=== PATIENT | male | born 1970 | race Two or more races ===

== ENCOUNTER 2018-11-11 05:04 | Inpatient (IN) | payer OTHER ==
[~2018-11-11] VITALS: Ht 175.3 cm; Wt 145.1 kg
--- NOTE | 2018-11-11 05:50 | NUR ---
RN ADMITTING NOTES RECEIVED PT FOR DAY SURGERY, PT AWAKE ALERT ORIENTEDX4, BREATHING EVEN AND UNLABORED ON ROOM AIR. IV ACCESS ON THE R AC 20G SL. CONSENTS SIGNED, BELONGINGS LIST COMPLETED. PT AWAITING SX NURSE. WILL ENDORSE TO DAY NURSE FOR JESSI
[2018-11-11] MEDS ORDERED: AMLO5TAB9 PO (05:53)
[2018-11-11] MEDS ORDERED: ANESTHESIA TRAY IN PYXIS 1 EA TRAY MC ONE (05:54)
[2018-11-11] MEDS ORDERED: BACITRACIN 50000 UNITS/VIAL ONE (05:54)
[2018-11-11] MEDS ORDERED: BUPIVACAINE 0.5 % PF 150 MG/30 ML VIAL ONE (06:27)
[2018-11-11 06:31] VITALS: BP 158/75
[2018-11-11] MEDS ORDERED: HYDROMORPHONE INJ 2 MG/ML DISP.SYRIN ONE (07:19)
[2018-11-11] MEDS ORDERED: TRANEXAMIC ACID 3,000 MG in SODIUM CHLORIDE IRRIG SOLUTION 70 ML IR ONE (07:30)
--- NOTE | 2018-11-11 07:30 | NUR ---
CRISTINA MS OPENING NOTES Patient remains to be at surgery at this time.
[2018-11-11] MEDS ORDERED: HYDROMORPHONE 1 MG/1 ML DISP.SYRIN ONE (09:28)
[2018-11-11] MEDS ORDERED: AMBIEN 5 MG TABLET PO PRN (10:00)
[2018-11-11] MEDS ORDERED: DULCOLAX 10 MG/SUPP.RECT RC PRN (10:00)
[2018-11-11] MEDS ORDERED: TYLENOL 650 MG TABLET PO PRN (10:00)
[2018-11-11] MEDS ORDERED: SENOKOT 8.6 MG TABLET PO PRN (10:00)
[2018-11-11] MEDS ORDERED: MAG HYDROX/AL HYDROX/SIMETH 30 ML UDC PO PRN (10:00)
[2018-11-11] MEDS ORDERED: COLACE 250 MG CAPSULE PO PRN (10:00)
[2018-11-11] MEDS ORDERED: HYDROMORPHONE 1 MG/1 ML DISP.SYRIN IV PRN (10:00)
[2018-11-11] MEDS ORDERED: diphenhydrAMINE HCL 25 MG CAPSULE PO PRN (10:00)
[2018-11-11] MEDS ORDERED: ONDANSETRON HCL/PF 4 MG/2 ML VIAL IV PRN (10:00)
[2018-11-11 10:15] VITALS: BP 132/79
[2018-11-11] MEDS: FAMOTIDINE (20 MG) 20 MG TABLET PO SCH ×2 (11:50→21:08)
[2018-11-11] MEDS: HYDROMORPHONE 1 MG/1 ML DISP.SYRIN SQ PRN ×4 (11:58→21:11)
[2018-11-11] MEDS: ANCEF 1 G in IV D5W 50 ML IV SCH ×2 (14:45→22:13)
[2018-11-11 16:00] VITALS: BP 146/87
[2018-11-11] MEDS: IV D5/0.45 NACL 1,000 ML IV PRN (17:59)
--- NOTE | 2018-11-11 18:20 | NUR ---
RN MS CLOSING NOTES Patient remains on 2L o2 nasal cannula. No sob noted, vital signs stable. Patient remains a/o x4, easily arousable after given pain medications. Remains on Left AC 20 gauge D5 1/2 NS 125 mL per hour. Pulse ox bedside as long as patient will eb getting narcotics for pain control. Patient states he is comfortable and that pain is under control. Bed at the lowest setting, call light within reach. Will give report to CRISTINA MORALES for JESSI bedside.
--- NOTE | 2018-11-11 19:35 | NUR ---
RN OPENING NOTES RECEIVED PATIENT IN BED, AWAKE. ON O2 2L VIA NASAL CANNULA, TOLERATING WELL. PATIENT IS A/O X 4. PATIENT HAS LAC 20G WITH D5 1/2 NS RUNNING AT 125 ML PER HOUR. CONTINUOUS PULSE OX WITH CURRENT READING AT 96%. SAFETY PRECAUTIONS IMPLEMENTED; CALL LIGHT WITHIN REACH, BED LOWEST POSITION, BED LOCKED, SIDE RAILS UP X2. WILL CONTINUE TO MONITOR PATIENT.
[2018-11-11 20:00] VITALS: BP 134/85
--- NOTE | 2018-11-11 21:11 | NUR ---
RN NOTES PATIENT REQUESTED DILAUDID FOR PAIN 11/26. VITALS ARE 129/96, P 88, O2 SAT 96%, RESPIRATIONS 18, TEMP 98.4. WILL CONTINUE TO MONITOR.
[2018-11-11] MEDS: oxyCODONE IR immediate release 5 MG PO PRN (23:38)
--- NOTE | 2018-11-11 23:38 | NUR ---
RN NOTES [id number] PATIENT REQUESTED PAIN MEDICATION. OXY IR. VITALS ARE: 120/76, P94, O2 SAT 98%, RR 18, TEMP 98.5. WILL CONTINUE TO MONITOR.
[2018-11-12] MEDS: IV D5/0.45 NACL 1,000 ML IV PRN (03:38)
--- NOTE | 2018-11-12 04:43 | NUR ---
RN NOTES PATIENT REQUESTED DILAUDID TO BE ADMNISTERED. VITALS PRIOR TO ADMINISTRATION: 135/96, PULSE 86, O2 SAT 97, RESPIRATIONS 20, TEMP 98.2 F. WILL CONTINUE TO MONITOR.
--- NOTE | 2018-11-12 07:15 | NUR ---
RN CLOSING NOTES PATIENT CURRENTLY ASLEEP IN BED, EASILY AROUSABLE. NO ACUTE CHANGES OVERNIGHT. ON CONTINOUS PULSE OX MONITORING, WITH SATURATION 95-99% THROUGHOUT THE NIGHT. VITALS STABLE. ON O2 2L VIA NC, TOLERATING WELL. PATIENT A/O X 4 WHEN AWAKE. PAIN WAS CONTROLLED WITH NARCOTICS. SAFETY PRECAUTIONS IMPLEMENTED; CALL LIGHT WITHIN REACH, BED LOWEST POSITION, BED LOCKED, SIDE RAILS UP X2. ENDORSED CARE TO DAY NURSE FOR CONTINUITY OF CARE.
[2018-11-12 07:37] LABS: BASOPHILS % (AUTO) 0.1 % (0.0-2.0); HEMATOCRIT 37 % (39-51); HEMOGLOBIN 12.5 g/dL (13.5-17.5); LYMPHOCYTES # (AUTO) 1.4 /CMM (0.8-4.8); LYMPHOCYTES % (AUTO) 12.3 % (20.0-44.0); MEAN CORPUSCULAR HGB CONC 34 g/dl (31.0-36.0); MEAN CORPUSCULAR VOLUME 88 fL (80-96); MONOCYTES # (AUTO) 0.9 /CMM (0.1-1.30); MONOCYTES % (AUTO) 7.6 % (2.0-12.0); NEUTROPHILS # (AUTO) 9.2 /CMM (1.8-8.9); PLATELET COUNT (AUTO) 187 /CMM (150-450); RED BLOOD CELL COUNT(AUTO) 4.18 MIL/uL (4.5-6.0); WHITE BLOOD COUNT (AUTO) 11.5 K/uL (4.3-11.0)
--- NOTE | 2018-11-12 07:42 | NUR ---
RN MS OPENING NOTES Patient received on 2L o2 nasal cannula, no sob noted. Patient denies pain at this time and is lying down comfortably on bed, a/o x4. Left AC 20 gauge D5 1/2 NS 125 mL per hour. Bed at the lowest setting, call light within reach.
[2018-11-12 07:44] LABS: CALCIUM, SERUM 8.1 mg/dL (8.5-10.1); CREATININE 0.9 mg/dL (0.6-1.3); POTASSIUM 3.8 mmol/L (3.5-5.1)
[2018-11-12 08:00] VITALS: BP 152/83
[2018-11-12] MEDS: AMLODIPINE BESYLATE 5 MG TABLET PO SCH (08:16)
[2018-11-12] MEDS: ASPIRIN 325 MG TABLET PO SCH ×2 (08:16→16:41)
[2018-11-12] MEDS: FAMOTIDINE (20 MG) 20 MG TABLET PO SCH ×2 (08:16→21:19)
[2018-11-12] MEDS: HYDROMORPHONE 1 MG/1 ML DISP.SYRIN SQ PRN ×3 (08:17→19:54)
[2018-11-12] MEDS: oxyCODONE IR immediate release 5 MG PO PRN ×3 (09:07→21:21)
[2018-11-12] MEDS ORDERED: oxyCODONE IR immediate release 5 MG PO ONE (09:30)
[2018-11-12] MEDS ORDERED: diphenhydrAMINE HCL 25 MG CAPSULE PO PRN (11:00)
[2018-11-12] MEDS ORDERED: MAGNESIUM HYDROXIDE 30 ML UDC PO PRN (11:00)
[2018-11-12] MEDS ORDERED: CLONIDINE HCL 0.1 MG TABLET PO PRN (11:00)
[2018-11-12] MEDS: DOCUSATE SODIUM 100 MG CAPSULE PO SCH ×2 (11:09→16:41)
[2018-11-12 16:00] VITALS: BP 140/81
--- NOTE | 2018-11-12 18:23 | NUR ---
RN MS CLOSING NOTES Patient remains on nasal cannula 2 Litter, no sob noted, patient denies pain at this time. Patient remains a/o x4, vital signs stable all shift. Post OP left knee surgery, pain under control and patient able to move bilateral knees with no resistance. Dressing scheduled to be changed tomorrow per DELLA Wick. Bed at the lowest setting, call light within reach, side rails up x2. Will give report to NOC RN for JESSI bedside.
--- NOTE | 2018-11-12 19:05 | NUR ---
RN MS OPENING NOTES RECEIVED PATIENT IN BED AWAKE ALERT AND ORIENTED X 4, RESPIRATIONS EVEN AND UNLABORED WITH EQUAL RISE AND FALL OF CHEST, DENIES ANY PAIN OR DISCOMFORT AT THIS TIME, SCD'S IN PLACE, URINAL AT BEDSIDE, IV SITE TO LEFT AC #20G INTACT AND PATENT, NO REDNESS, NO INFILTRATION, SL, DSG REMAINS CLEAN DRY AND INTACT, FLUIDS OFFERED,SAFETY PRECAUTIONS IN PLACE, LOW BED AND LOCKED, ORIENTED TO STAFF AND CALL LIGHT AND KEPT WITHIN REACH, ON 2L VIA NC, NO DISTRESS PRESENT, WILL CONTINUE TO MONITOR AND ATTEND TO NEEDS.
--- NOTE | 2018-11-12 19:54 | NUR ---
RN MS NOTES PATIENT COMPLAINT OF PAIN TO LEFT LEG 9-10/10 ACHING/THROBBING PAIN, REQUESTING FOR PAIN MEDICATION DILAUDID SQ, VS WNL 144/85,109,95%,18. DILAUDID PRN GIVEN ORDERED SQ. WILL CONTINUE TO MONITOR FOR EFFECTIVENESS.
[2018-11-12 20:00] VITALS: BP_SYST 144; BP_SYST 154; BP_DIAS 79; BP_DIAS 85
--- NOTE | 2018-11-12 21:21 | NUR ---
RN MS NOTES PATIENT TRANSFERRED TO MS 2 ROOM 207-1 SAFELY , WITH BELONGINGS, CHART AND MEDICATIONS, ORIENTED TO UNIT AND CALL LIGHT, SAFETY PRECAUTIONS IN PLACE.
--- NOTE | 2018-11-12 21:21 | NUR ---
RN MS NOTES PATIENT COMPLAIN OF PAIN TO LEFT LEG STATES "9/10 ACHING THROBBING" REQUESTING FOR OXY IR VS WNL 141/91,101,18,96% 2L VIA NC. PRN OXY IR GIVEN ORDERED, WILL CONTINUE TO MONITOR FOR EFFECTIVENESS.
--- NOTE | 2018-11-12 21:23 | NUR ---
RT NOTE PT PLACED ON CONTINUOS PULSE OX PER PHYSICIAN ORDER. PT SATURATING 95%, HR 103.
[2018-11-13] MEDS: HYDROMORPHONE 1 MG/1 ML DISP.SYRIN SQ PRN ×3 (04:39→16:21)
--- NOTE | 2018-11-13 04:39 | NUR ---
RN MS NOTES PATIENT COMPLAINT OF STOMACH INDIGESTION REQUESTING FOR MEDICATION , MAALOX PRN OFFERED, PATIENT AGREED AND GIVEN, PATIENT ALSO C/O PAIN 09/25 TO SURGICAL SITE REQUESTED FOR PAIN MEDICATION DILAUDID SQ ORDERED, PRN GIVEN ORDERED, VS WNL 133/71 , 18,96%, 89. WILL CONTINUE TO MONITOR FOR EFFECTIVENESS.
--- NOTE | 2018-11-13 07:00 | NUR ---
RN MS CLOSING NOTES PATIENT IN BED SLEEPING BUT EASILY AROUSABLE, ALERT AND ORIENTED X 4, RESPIRATIONS EVEN AND UNLABORED WITH EQUAL RISE AND FALL OF CHEST, DENIES ANY PAIN OR DISCOMFORT AT THIS TIME,DILAUDID EFFECTIVE, MAALOX EFFECTIVE, SCD'S IN PLACE, URINAL AT BEDSIDE, IV SITE TO LEFT AC #20G INTACT AND PATENT, NO REDNESS, NO INFILTRATION, SL, DSG REMAINS CLEAN DRY AND INTACT, FLUIDS OFFERED,SAFETY PRECAUTIONS IN PLACE, LOW BED AND LOCKED, CALL LIGHT KEPT WITHIN REACH, ON 2L VIA NC, NO DISTRESS PRESENT, CONTINUOUS PULSE OX IN PLACE SP02 96% WILL CONTINUE TO MONITOR AND ATTEND TO NEEDS AND ENDORSE TO NEXT SHIFT.
--- NOTE | 2018-11-13 07:30 | NUR ---
MS/RN NOTE THE PATIENT ALERT AND ORIENTED X4. DENIES PAIN. RESPIRATION REGULAR AND UNLABORED. IN ROOM AIR AND DENIES SOB. PATIENT IS ON CONTINUOUS OXIMETER AND SATURATION IN ROOM AIR IS AT 97%. LAC G 20 PATENT AND SALINE LOCKED. BED LOW AND LOCKED. SIDE RAILS UP X3. CALL LIGHT WITHIN REACH. WILL CONTINUE TO MONITOR.
[2018-11-13 08:00] VITALS: BP 115/71
[2018-11-13] MEDS: oxyCODONE IR immediate release 5 MG PO PRN ×3 (08:11→21:21)
[2018-11-13] MEDS: DOCUSATE SODIUM 100 MG CAPSULE PO SCH ×3 (08:12→16:20)
[2018-11-13] MEDS: ASPIRIN 325 MG TABLET PO SCH ×2 (08:12→16:20)
[2018-11-13] MEDS: AMLODIPINE BESYLATE 5 MG TABLET PO SCH (08:12)
[2018-11-13] MEDS: FAMOTIDINE (20 MG) 20 MG TABLET PO SCH ×2 (08:12→21:19)
--- NOTE | 2018-11-13 08:15 | NUR ---
MS/RN NOTE THE PATIENT VERBALIZED BEING CONSTIPATED. MOM GIVEN ORDERED. FLUID ARE ENCOURAGED. WILL CONTINUE TO MONITOR.
[2018-11-13] MEDS ORDERED: PSYLLIUM SEED 1 PKT PACKET PO ONE (13:59)
[2018-11-13 16:00] VITALS: BP 118/70
--- NOTE | 2018-11-13 17:15 | NUR ---
MS/RN NOTE PER DR RAMOS DISCONTINUE DILAUDID 1 MG Q3HR PRN. THE ORDER IS READ BACK, VERIFIED. NOTED AND CARRIED OUT.
--- NOTE | 2018-11-13 18:50 | NUR ---
MS/RN NOTE THE PATIENT ALERT AND ORIENTED X4. DENIES PAIN. RESPIRATION REGULAR AND UNLABORED. IN ROOM AND SATURATION IN ROOM AIR AT 97%. DENIES SOB. THE PATIENT IN NO APPARENT DISTRESS. LAC G 20 PATENT AND SALINE LOCKED. BED LOW AND LOCKED. SIDE RAILS UP X3. CALL LIGHT WITHIN REACH. WILL ENDORSE TO NIGHTS SHIFT.
--- NOTE | 2018-11-13 19:05 | NUR ---
RN MS OPENING NOTES RECEIVED PATIENT IN BED AWAKE ALERT AND ORIENTED X 4, RESPIRATIONS EVEN AND UNLABORED WITH EQUAL RISE AND FALL OF CHEST, DENIES ANY PAIN OR DISCOMFORT AT THIS TIME,SCD'S IN PLACE, URINAL AT BEDSIDE, IV SITE TO LEFT AC #20G INTACT AND PATENT, NO REDNESS, NO INFILTRATION, SL, DSG REMAINS CLEAN DRY AND INTACT, FLUIDS OFFERED,SAFETY PRECAUTIONS IN PLACE, LOW BED AND LOCKED, ORIENTED TO STAFF AND CALL LIGHT KEPT WITHIN REACH, NO DISTRESS PRESENT, WILL CONTINUE TO MONITOR AND ATTEND TO NEEDS, REMAINS COMFORTABLE AT TIME.
[2018-11-13 20:00] VITALS: BP 122/78
--- NOTE | 2018-11-13 21:21 | NUR ---
rn ms notes patient complaint of pain to left leg 6/10 requesting for pain medication ,prn oxy ir given as ordered, vs wnl, will continue to monitor for effectiveness.
[2018-11-13] MEDS ORDERED: PSYLLIUM SEED 1 PKT PACKET PO SCH (22:00)
--- NOTE | 2018-11-14 06:11 | NUR ---
RN MS NOTES OXYCODONE IR WAS GIVEN AT 0300 FOR PAIN. VS WERE WNL. SEE CHART FOR DOWNTIME EMR AND WRITTEN NURSING NOTES.
--- NOTE | 2018-11-14 06:46 | NUR ---
RN MS CLOSING NOTES PATIENT IN BED AWAKE ALERT AND ORIENTED X 4, RESPIRATIONS EVEN AND UNLABORED WITH EQUAL RISE AND FALL OF CHEST, DENIES ANY PAIN OR DISCOMFORT AT THIS TIME,, URINAL AT BEDSIDE, IV SITE TO LEFT AC #20G INTACT AND PATENT, NO REDNESS, NO INFILTRATION, SL, DSG REMAINS CLEAN DRY AND INTACT, FLUIDS OFFERED,SAFETY PRECAUTIONS IN PLACE, LOW BED AND LOCKED, CALL LIGHT KEPT WITHIN REACH, NO DISTRESS PRESENT, HAD A BM THIS SHIFT, WILL CONTINUE TO MONITOR AND ATTEND TO NEEDS, REMAINS COMFORTABLE AT TIME AND WILL ENDORSE TO NEXT SHIFT.
--- NOTE | 2018-11-14 07:32 | NUR ---
MS/RN NOTE THE PATIENT ALERT AND ORIENTED X4. IN ROOM AIR AND DENIES SOB. RESPIRATION REGULAR AND UNLABORED. DENIES PAIN. THE PATIENT IN NO APPARENT DISTRESS. LAC G 20 PATENT AND SALINE LOCKED. BED LOW AND LOCKED. SIDE RAILS UP X2 CALL LIGHT WITHIN REACH. WILL CONTINUE TO MONITOR.
[2018-11-14] MEDS: oxyCODONE IR immediate release 5 MG PO PRN ×2 (07:53→11:35)
[2018-11-14 08:00] VITALS: BP 136/76
[2018-11-14 08:11] VITALS: BP 136/76
[2018-11-14] MEDS: FAMOTIDINE (20 MG) 20 MG TABLET PO SCH (08:11)
[2018-11-14] MEDS: AMLODIPINE BESYLATE 5 MG TABLET PO SCH (08:11)
[2018-11-14] MEDS: ASPIRIN 325 MG TABLET PO SCH ×2 (08:11→16:14)
[2018-11-14] MEDS: DOCUSATE SODIUM 100 MG CAPSULE PO SCH ×2 (08:11→16:14)
[2018-11-14] MEDS ORDERED: OXYC5CAP18 PO (11:21)
[2018-11-14] MEDS ORDERED: ASPI-992 PO (11:21)
--- NOTE | 2018-11-14 18:50 | NUR ---
MS/RN NOTE THE PATIENT ALERT AND ORIENTED X4. PATIENT IN ROOM AIR AND SATURATION IS TA 98%. DENIES SOB. RESPIRATION REGULAR AND UNLABORED. DENIES PAIN. THE PATIENT IN NO APPARENT DISTRESS. LAC G 20 PATENT AND SALINE LOCKED. BED LOW AND LOCKED. SIDE RAILS UP X2. CALL LIGHT WITHIN REACH. 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
--- NOTE | 2018-11-14 19:20 | NUR ---
MS/RN NOTE PATIENT ALERT AND ORIENTED X4. DENIES PAIN. IN ROOM AIR AND DENIES SOB. RESPIRATION REGULAR AND UNLABORED. DISCHARGE EDUCATION PROVIDED TO THE PATIENT AND HE VERBALIZED UNDERSTANDING. THE PATIENT IS PICKED UP BY [facility] VIA PRIVATE CAR. PATIENT LEFT THE HOSPITAL IN STABLE CONDITION.
== END 2018-11-14 19:20 | disposition home health service (06) | DRG 470 ==
LOC: DS 05:04 → MED 05:06 → MEDSG2 11-12 21:08
PROVIDERS: ADMIT Nurse Practitioner Acute Care; ATTEND Nurse Practitioner Acute Care
PROC: 0SRD0J9 Replacement of Left Knee Joint with Synthetic Substitute, Cemented, Open Approach (ICD-10-PCS; principal; 2018-11-11)
DX: M17.12 Unilateral primary osteoarthritis, left knee (principal); Z68.42 Body mass index [BMI] 45.0-49.9, adult; I10 Essential (primary) hypertension; E66.9 Obesity, unspecified; K59.00 Constipation, unspecified; G47.30 Sleep apnea, unspecified
CPT/HCPCS: 36415; 80048-TC; 85025-TC; 86850-TC; 87081-TC; 88305-TC; 88311-TC; 94760-TC; 97110-TC; 97112-TC; 97116-TC; 97530-TC; 97760-TC; A4217; C1713; G0378; J0690; J1100; J1170; J1885; J2405; J2704; J3490; J7060